=== PATIENT | female | born 1995 | race Caucasian/White ===

== ENCOUNTER 2017-07-24 18:26 | Emergency (ER) | END 2017-07-24 19:48 | disposition home or self-care (01) ==

== ENCOUNTER 2017-07-27 18:22 | Emergency (ER) | END 2017-07-27 18:48 | disposition home or self-care (01) ==

== ENCOUNTER 2017-08-03 19:09 | Emergency (ER) | END 2017-08-03 20:15 | disposition home or self-care (01) ==